=== PATIENT | male | born 1970 | race Caucasian/White ===

== ENCOUNTER 2017-03-01 08:41 | Inpatient (IN) | payer OTHER ==
[~2017-03-01] VITALS: Ht 167.6 cm; Wt 93.1 kg
[2017-03-01 09:50] LABS: UA SPECIFIC GRAVITY 1.015 (1.005-1.035); microscopic required? YES; urine erythrocyte NEGATIVE (NEGATIVE)
[2017-03-01 10:05] LABS: BASOPHIL % 0.3 % (0-2); PLATELET COUNT 241 x10^3mcL (130-400); RED CELL DISTRIBUTION WIDTH 12.8 % (11.5-14.5)
[2017-03-01 10:18] LABS: CALCIUM 9.2 mg/dL (8.5-10.1); CARBON DIOXIDE 28.7 mmol/L (21-32); CHLORIDE SERUM 102 mmol/L (98-107); CREATININE SERUM 1.1 mg/dL (0.7-1.3); GFR1 > 60 mL/min; GLUCOSE SERUM 121 mg/dL (74-106); POTASSIUM SERUM 3.9 mmol/L (3.5-5.1); SODIUM SERUM 139 mmol/L (136-145)
[2017-03-01 10:23] LABS: ALBUMIN 4.1 g/dL (3.4-5.0); ALKALINE PHOSPHATASE 87 U/L (46-116); ALT/SGPT 42 U/L (16-63); AST/SGOT 29 U/L (15-37); BILIRUBIN TOTAL 0.53 mg/dL (0.20-1.00); TOTAL PROTEIN, SERUM 8.1 g/dL (6.4-8.2)
[2017-03-01 13:23] VITALS: BP 158/100
[2017-03-01 13:36] LABS: PHOSPHOROUS 2.8 mg/dL (2.5-4.9)
[2017-03-01 13:37] LABS: FREE T4 1.24 ng/dL (0.76-1.46); FREE THYROXINE INDEX 3.3 ug/dL (1.4-4.5); T4(THYROXINE) 9.5 ug/dL (4.7-13.3)
[2017-03-01 13:37] LABS: CHOLESTEROL/HDL RATIO 4.9
[2017-03-01 13:40] LABS: T3 TOTAL 1.17 ng/mL
[2017-03-01 17:36] VITALS: BP 163/105
[2017-03-01 21:19] VITALS: BP 156/101
[2017-03-01 22:08] LABS: AMPHETAMINE QUAL UR NONE DETECTED (NEG <=1000)
[2017-03-02 04:59] VITALS: BP 156/104
[2017-03-02 07:24] LABS: BASOPHIL % 0.5 % (0-2); PLATELET COUNT 218 x10^3mcL (130-400); RED CELL DISTRIBUTION WIDTH 13.3 % (11.5-14.5)
[2017-03-02 07:37] LABS: CALCIUM 8.1 mg/dL (8.5-10.1); CARBON DIOXIDE 27.9 mmol/L (21-32); CHLORIDE SERUM 105 mmol/L (98-107); GFR1 > 60 mL/min; GLUCOSE SERUM 110 mg/dL (74-106); MAGNESIUM 2.1 mg/dL (1.8-2.4); PHOSPHOROUS 2.4 mg/dL (2.5-4.9); POTASSIUM SERUM 3.3 mmol/L (3.5-5.1); SODIUM SERUM 140 mmol/L (136-145)
[2017-03-02 08:50] VITALS: BP 154/100
[2017-03-02] MEDS ORDERED: COL100 PO (10:56)
[2017-03-02] MEDS ORDERED: REG5 PO (10:57)
[2017-03-02] MEDS ORDERED: SIMETHICONE80 MG CH (10:59)
[2017-03-02 11:27] VITALS: BP 142/74
[2017-03-02] MEDS ORDERED: ZES20 PO (11:42)
[2017-03-02] MEDS ORDERED: PRI20 PO (11:43)
[2017-03-02 11:55] VITALS: BP 142/74
== END 2017-03-02 13:03 | disposition home or self-care (01) | DRG 388 ==
LOC: ED 08:41 → DU 12:16
PROVIDERS: Emergency Medicine; ADMIT Family Medicine
DX: K56.7 Ileus, unspecified (principal); N17.0 Acute kidney failure with tubular necrosis; E83.51 Hypocalcemia; E83.39 Other disorders of phosphorus metabolism; E78.5 Hyperlipidemia, unspecified; E87.6 Hypokalemia; I16.0 Hypertensive urgency; K80.20 Calculus of gallbladder without cholecystitis without obstruction; M47.9 Spondylosis, unspecified; Z83.3 Family history of diabetes mellitus
CPT/HCPCS: 83880; 84439; G0480; J1885; J2270; J2405; J7030; J8597; Q0092